=== PATIENT | female | born 1955 | race African-American/Black ===

== ENCOUNTER 2020-05-12 22:27 | Emergency (ER) | payer OTHER ==
[~2020-05-12] VITALS: Ht 154.9 cm; Wt 77.1 kg
[2020-05-12 23:08] VITALS: BP_SYST 144
--- NOTE | 2020-05-12 23:08 | NUR ---
Patient to ER bed 2 to gown for evaluation. Side rails up. Report given to MELODY.
--- NOTE | 2020-05-12 23:09 | NUR ---
ER at bedside examining patient.
--- NOTE | 2020-05-12 23:10 | NUR ---
PT AAO AND AMBULATORY C/O ABDOMINAL PAIN TODAY 07/06 WITH NAUSEA. PT REPORTS VOMITING APPROXIMATELY FOUR TIMES AND NO IMPROVEMENT WITH HOME MEASURES. DENIES FEVER OR SOB. PT BELIEVES FOOD POISONING POSSIBLY.
[2020-05-12] MEDS ORDERED: ONDANSETRON HCL 4 MG/2 ML VIAL IVP ONE (23:15)
--- NOTE | 2020-05-13 00:02 | NUR ---
Pt taken to radiology via gurney by hayes Dominguez.
[2020-05-13 00:08] LABS: BASOPHILS % (AUTO) 0.3 % (0.0-2.0); HEMATOCRIT 41.1 % (36-48); HEMOGLOBIN 13.2 g/dL (12.0-16.0); LYMPHOCYTES # (AUTO) 0.8 K/uL (1.0-5.5); MEAN CORPUSCULAR HEMOGLOBIN 27 pg (27-31); MEAN CORPUSCULAR HGB CONC 32 % (32-36); MEAN CORPUSCULAR VOLUME 82 fL (79.0-98.0); MONOCYTES # (AUTO) 0.5 K/uL (0.0-1.0); MONOCYTES % (AUTO) 5.6 % (1.7-9.3); NEUTROPHILS # (AUTO) 7.7 K/uL (1.8-7.7); NEUTROPHILS % (AUTO) 85.1 % (40.0-70.0); PLATELET COUNT (AUTO) 186 K/uL (130-430); RED BLOOD CELL COUNT(AUTO) 4.99 MIL/uL (4.2-6.2); RED CELL DISTRIBUTION WIDTH 14.5 % (9.0-15.0); WHITE BLOOD COUNT (AUTO) 9.1 K/uL (4.8-10.8)
--- NOTE | 2020-05-13 00:20 | NUR ---
Pt back from radiology. Stable, no complaints at this time.
[2020-05-13 00:51] LABS: ALBUMIN 4.1 g/dL (3.4-4.8); CALCIUM 9.7 mg/dL (8.4-11.0); CREATININE 0.65 mg/dL (0.55-1.30); POTASSIUM 3.2 mmol/L (3.5-5.1); TOTAL BILIRUBIN 0.8 mg/dL (0.0-1.0)
[2020-05-13] MEDS ORDERED: NACL 0.9% 1,000 ML IV ONE (01:00)
[2020-05-13] MEDS ORDERED: MORPHINE 2 MG/ML INJ. SYRINGE IVP ONE (01:00)
[2020-05-13 01:03] LABS: BILIRUBIN,URINE NEGATIVE (NEGATIVE); CLARITY/URINE SL CLOUDY (CLEAR); COLOR,URINE YELLOW (YELLOW); GLUCOSE,URINE NEGATIVE (NEGATIVE); KETONES,URINE TRACE (NEGATIVE); LEUKOCYTE ESTERASE ,URINE NEGATIVE (NEGATIVE); NITRITE, URINE NEGATIVE (NEGATIVE); PROTEIN URINE 2+ (NEGATIVE)
[2020-05-13 01:07] LABS: BLOOD, URINE TRACE (NEGATIVE)
[2020-05-13] MEDS ORDERED: CIPROFLOXACIN LACT 400 MG/D5W 200 ML IV ONE (01:30)
[2020-05-13] MEDS ORDERED: metroNIDAZOLE 500 mg/NS 100 ML IV ONE (01:30)
[2020-05-13 01:46] LABS: BACTERIA,URINE FEW /HPF (None Seen); WBC,URINE 0-3 /HPF (0-3)
--- NOTE | 2020-05-13 01:50 | NUR ---
ekg technician at bedside.
--- NOTE | 2020-05-13 02:00 | NUR ---
Awa from transfer center at [facility] will set up transportation to patient.
--- NOTE | 2020-05-13 02:10 | NUR ---
Aakash from [employer] named Millie for confirmation of admission or to transfer. spoke to , confirmation to transfer to [facility].
[2020-05-13] MEDS ORDERED: ONDANSETRON HCL 4 MG/2 ML VIAL IVP ONE (03:00)
[2020-05-13] MEDS ORDERED: fentaNYL CITRATE/PF 100 MCG/2 ML AMP IVP ONE (03:00)
--- NOTE | 2020-05-13 03:00 | NUR ---
Pt is nauseas and had one vomiting episode. aware.
--- NOTE | 2020-05-13 03:14 | NUR ---
Abdulkadir baker in [facility] - 05/13/20 at 0452 by [id number] arrived for patient transport.
--- NOTE | 2020-05-13 03:24 | NUR ---
Spoke to GILBERTO in Transfer Center at [facility]. He states that will be accepting MD. Pt will be going to Room 205A. [facility] has been scheduled for transport ETA 0430. Advised to call [phone] for report.
--- NOTE | 2020-05-13 03:35 | NUR ---
Awa called ER, pt will be going to room 205A, under care of [facility] ETA 0430.
--- NOTE | 2020-05-13 03:44 | NUR ---
Patient to be transferred to [facility]. Is being transferred due to higher level of care. Receiving facility has accepting physician and available space. ER physician has signed transfer form. Patient or responsible libertarian has agreed to transfer and signed form. Patient belongings inventoried and will be sent with patient. Copy of nursing notes, lab reports, EKG, Physicians Orders and X-rays to be sent with patient. Report called to JUANJO Mccloud at receiving facility. Receiving physician is . [facility] has been called for transfer. ETA is [phone] - [phone].
--- NOTE | 2020-05-13 03:51 | NUR ---
Transfer consent form signed and placed in package.
--- NOTE | 2020-05-13 04:14 | NUR ---
[facility] arrived for patient transport.
[2020-05-13 04:15] VITALS: BP_SYST 120
== END 2020-05-13 04:14 | disposition short-term general hospital (02) ==
LOC: SED 22:27
DX: K81.9 Cholecystitis, unspecified (principal); Z88.0 Allergy status to penicillin; Z88.6 Allergy status to analgesic agent
CPT/HCPCS: 36415; 74176; 76705; 80053; 81000; 83690; 85025; 93005; 96365; 96368; 96375 ×2; 96376; 99285; J0744; J2270; J2405; J3010; J3490; J7030